=== PATIENT | female | born 1980 | race Caucasian/White ===

== ENCOUNTER 2022-12-10 13:51 | Emergency (ER) | payer OTHER ==
[2022-12-10 14:04] VITALS: BP 111/50; PULSE 83; RESP 17; TEMP 98; BMI 36.3
[2022-12-10] MEDS ORDERED: DOXYCYCLINE HYCLATE 100 MG CAPSULE PO ONE ×2 (14:59→15:39)
== END 2022-12-10 16:35 | disposition home or self-care (01) ==
LOC: JERFT 13:51
DX: S40.861A Insect bite (nonvenomous) of right upper arm, initial encounter (principal); R51.9 Headache, unspecified; R50.9 Fever, unspecified; M79.601 Pain in right arm; L53.9 Erythematous condition, unspecified; W57.XXXA Bitten or stung by nonvenomous insect and other nonvenomous arthropods, initial encounter
CPT/HCPCS: 99283-25

== ENCOUNTER → 2023-11-16 | Day surgery (SDC) | payer OTHER | END | disposition home or self-care (01) | LOC: JRADUS-SUR 10:16 | PROVIDERS: ATTEND Obstetrics & Gynecology | PROC: BU081ZZ Plain Radiography of Uterus and Fallopian Tubes using Low Osmolar Contrast (ICD-10-PCS; principal; 2023-11-16) | DX: Z31.41 Encounter for fertility testing (principal) | CPT/HCPCS: 58340; 74740-TC-FY; 76000-TC-FY; 84703 ==

== ENCOUNTER 2024-07-23 13:40 | Emergency (ER) | payer OTHER ==
[2024-07-23 14:13] VITALS: RESP 18; TEMP 98; BMI 31.1
[2024-07-23] MEDS ORDERED: IBUPROFEN 600 MG TABLET (FP) PO ONE (14:37)
[2024-07-23] MEDS ORDERED: predniSONE 10 MG TABLET (UD) ONE (14:37)
[2024-07-23] MEDS ORDERED: predniSONE 20 MG TABLET (UD) ONE (14:37)
[2024-07-23] MEDS: IBUPROFEN 600 MG TABLET (FP) PO ONE (14:40)
[2024-07-23] MEDS: predniSONE 20 MG TABLET (UD) PO ONE (14:40)
[2024-07-23 15:44] VITALS: BP 116/69; PULSE 81
[2024-07-23 16:09] LABS: HIV INTERPRETATION NEGATIVE (NEGATIVE)
[2024-07-23 16:10] LABS: HCV DIAGNOSTIC IN-HOUSE W/RFLX NON-REACTIVE (NONREACTIVE)
== END 2024-07-23 15:44 | disposition home or self-care (01) ==
LOC: JERFT 13:40
DX: M25.541 Pain in joints of right hand (principal); M25.542 Pain in joints of left hand; M25.531 Pain in right wrist; M25.532 Pain in left wrist
CPT/HCPCS: 36415; 86803; 87389; 99283-25

== ENCOUNTER 2024-09-13 13:57 | Day surgery (SDC) | payer OTHER ==
[2024-09-13] MEDS: FERRIC CARBOXYMALTOSE 750 MG in SODIUM CHLORIDE 250 ML IVPB ONE (14:27)
[2024-09-13 17:01] VITALS: RESP 20; TEMP 98.3
[2024-09-13 17:03] VITALS: BP 110/57; PULSE 66
== END 2024-09-13 15:30 | disposition home or self-care (01) ==
LOC: JONCCHEMO 13:57
PROVIDERS: ATTEND Internal Medicine Hematology & Oncology
PROC: 3E033GC Introduction of Other Therapeutic Substance into Peripheral Vein, Percutaneous Approach (ICD-10-PCS; principal; 2024-09-13)
DX: D50.9 Iron deficiency anemia, unspecified (principal)
CPT/HCPCS: J1439